=== PATIENT | female | born 1960 | race Caucasian/White ===

== ENCOUNTER 2021-05-25 15:18 | Emergency (ER) | payer MEDICAID, MEDICARE ==
[~2021-05-25] VITALS: Ht 167.6 cm; Wt 137.7 kg
[2021-05-25 15:30] VITALS: BP 176/82
[2021-05-25] MEDS ORDERED: FLUT15.820 NARES (15:59)
[2021-05-25] MEDS ORDERED: BYDU2INJ7 SC (15:59)
[2021-05-25] MEDS ORDERED: METF10004 PO (15:59)
[2021-05-25] MEDS ORDERED: CYAN1000VL IM (15:59)
[2021-05-25] MEDS ORDERED: DIPH25CA32 PO (15:59)
[2021-05-25] MEDS ORDERED: ZETI10TA16 PO (15:59)
[2021-05-25] MEDS ORDERED: DOCU100C16 PO (15:59)
[2021-05-25] MEDS ORDERED: MONT10TA97 PO (15:59)
[2021-05-25] MEDS ORDERED: METO1TAB33 PO (15:59)
[2021-05-25] MEDS ORDERED: MAGN200T PO (15:59)
[2021-05-25] MEDS ORDERED: GLIP10TA PO (16:00)
[2021-05-25] MEDS ORDERED: CLAR10CA3 PO (16:00)
[2021-05-25] MEDS ORDERED: LEVO150T42 PO (16:00)
[2021-05-25] MEDS ORDERED: RAMI1CAP24 PO (16:00)
[2021-05-25] MEDS ORDERED: VITMTA PO (16:00)
[2021-05-25] MEDS ORDERED: FAMO20TA PO (16:00)
[2021-05-25] MEDS ORDERED: TRES100I SC (16:00)
[2021-05-25] MEDS ORDERED: NYST1POW9 TOP (16:00)
[2021-05-25] MEDS ORDERED: PROAAER10 INH (16:00)
[2021-05-25] MEDS ORDERED: LEVAINH INH (16:00)
[2021-05-25] MEDS ORDERED: DRIS50003 PO (16:00)
[2021-05-25] MEDS ORDERED: FURO20TA2 PO (16:00)
[2021-05-25] MEDS ORDERED: POTA1TAB24 PO (16:00)
[2021-05-25] MEDS ORDERED: INVO100T PO (16:00)
[2021-05-25] MEDS ORDERED: SIMV40TA20 PO (16:00)
[2021-05-25] MEDS ORDERED: IBUPROFEN 800 MG TAB PO ONE (17:20)
== END 2021-05-25 18:32 | disposition home or self-care (01) ==
LOC: M ED 15:18
DX: S80.212A Abrasion, left knee, initial encounter (principal); W18.39XA Other fall on same level, initial encounter; Y92.018 Other place in single-family (private) house as the place of occurrence of the external cause; I10 Essential (primary) hypertension; E11.9 Type 2 diabetes mellitus without complications; E78.5 Hyperlipidemia, unspecified; E03.9 Hypothyroidism, unspecified; M79.7 Fibromyalgia; Z91.018 Allergy to other foods; Z91.048 Other nonmedicinal substance allergy status; Z79.899 Other long term (current) drug therapy; Z79.890 Hormone replacement therapy; Z79.84 Long term (current) use of oral hypoglycemic drugs; Z79.4 Long term (current) use of insulin